=== PATIENT | female | born 1980 | race Caucasian/White ===

== ENCOUNTER 2023-07-22 06:56 | Day surgery (SDC) | payer OTHER ==
[2023-07-15 14:00] VITALS: BMI 40.7
[2023-07-22] MEDS ORDERED: LIDOCAINE HCL 2% (20ML MULTI-DOSE VIAL) ONE (08:20)
[2023-07-22] MEDS ORDERED: PROPOFOL 20 ML ONE ×2 (08:28→08:43)
[2023-07-22] MEDS ORDERED: MIDAZOLAM HCL 2 MG/2 ML SINGLE DOSE VIAL ONE ×2 (08:28→08:39)
[2023-07-22] MEDS ORDERED: BUPIVACAINE HCL/PF 0.25% (2.5MG/ML) 10 ML VIAL ONE (08:48)
[2023-07-22] MEDS: BUPIVACAINE HCL/PF 0.25% (2.5MG/ML) 10 ML VIAL IJ ONE (08:52)
[2023-07-22 09:12] VITALS: PULSE 75; RESP 18; TEMP 97.2
[2023-07-22 09:42] VITALS: BP 121/67
[2023-07-22] MEDS ORDERED: ACETAMINOPHEN 325 MG TABLET (FP) ONE (09:59)
[2023-07-22] MEDS: ACETAMINOPHEN 325 MG TABLET (FP) PO PRN (10:15)
== END 2023-07-22 10:23 | disposition home or self-care (01) ==
LOC: FASU 06:56
PROVIDERS: ATTEND Orthopaedic Surgery Hand Surgery
PROC: 01N50ZZ Release Median Nerve, Open Approach (ICD-10-PCS; principal; 2023-07-22 08:43)
DX: G56.02 Carpal tunnel syndrome, left upper limb (principal)
CPT/HCPCS: 81025